=== PATIENT | female | born 1985 | race Hispanic/Latino ===

== ENCOUNTER → 2025-01-08 07:41 | Outpatient (REF) | payer OTHER, SELFPAY ==
[2025-01-08 09:45] LABS: Glycohemoglobin (HgbA1c) 5.8 % (4.0-5.6)
[2025-01-08 11:38] LABS: Vitamin D, 25-OH*** 30.9 ng/mL (30-80)
[2025-01-08 12:01] LABS: ALT (SGPT) 35 U/L (0-35); AST (SGOT) 29 U/L (14-36); Albumin 4.7 g/dl (3.5-5.0); Alkaline Phosphatase 89 U/L (38-126); Blood Urea Nitrogen 9 mg/dl (7-17); Calcium 9.1 mg/dl (8.4-10.2); Carbon Dioxide 25 mmol/L (22-30); Chloride 104 mmol/L (98-107); Glucose 86 mg/dl (70-99); HDL Cholesterol 41 mg/dl; LDL Cholesterol, Calculated 114 mg/dl; Potassium 4.2 mmol/L (3.5-5.1); Sodium 138 mmol/L (135-145); Total Bilirubin 0.7 mg/dl (0.2-1.3); Total Cholesterol 204 mg/dl (50-199); Total Protein 7.5 g/dl (6.3-8.2); Triglyceride 245 mg/dl (10-149); Very Low Density Lipoprotein 49 mg/dl (0-30); eGFR > 60.00
== END ==
LOC: CLINIC 07:41
PROVIDERS: ATTENDING PHYSICIAN Nurse Practitioner Adult Health
DX: R73.03 Prediabetes (principal); E55.9 Vitamin D deficiency, unspecified; E78.1 Pure hyperglyceridemia
CPT/HCPCS: 36415; 80053; 80061; 82306; 83036

== ENCOUNTER → 2025-01-29 18:16 | Outpatient (REF) | payer OTHER, SELFPAY | LOC: WDC 18:16 | PROVIDERS: ATTENDING PHYSICIAN Nurse Practitioner Adult Health | DX: Z12.31 Encounter for screening mammogram for malignant neoplasm of breast (principal) | CPT/HCPCS: 77063; 77067 ==

== ENCOUNTER → 2025-07-02 12:27 | Outpatient (REF) | payer OTHER, SELFPAY ==
[2025-07-02 13:37] LABS: HDL Cholesterol 41 mg/dl; LDL Cholesterol, Calculated 102 mg/dl; Very Low Density Lipoprotein 34 mg/dl (0-30)
[2025-07-02 14:53] LABS: Glycohemoglobin (HgbA1c) 5.6 % (4.0-5.6)
== END ==
LOC: CLINIC 12:27
PROVIDERS: ATTENDING PHYSICIAN Nurse Practitioner Adult Health
DX: R73.03 Prediabetes (principal); E78.1 Pure hyperglyceridemia
CPT/HCPCS: 36415; 80061; 83036